=== PATIENT | male | born 1985 | race American Indian/Alaskan Native ===

== ENCOUNTER 2020-10-31 16:44 | Emergency (ER) | payer OTHER ==
[2020-10-31] MEDS ORDERED: LIDOCAINE (1%) 10 MG/1 ML VIAL 20 ML MDV INFILTRATI ONE (17:32)
--- NOTE | 2020-10-31 17:59 | XRay Report ---
Right hand 2 views INDICATION: Middle finger pain FINDINGS: MCP joints and IP joints appear normal and intact. No acute fracture is definitely seen. Signer Name: Arsh Jones MD Signed: 10/31/2020 5:55 PM Workstation Name: [id number]
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
[2020-10-31 18:05] VITALS: BP 137/83
[2020-10-31] MEDS ORDERED: TETANUS,DIPH,PERTUSS(ACELL) VACCINE 0.5 ML SYRINGE IM ONE (19:39)
== END 2020-10-31 20:18 | disposition home or self-care (01) ==
LOC: ED 16:44
DX: S61.212A Laceration without foreign body of right middle finger without damage to nail, initial encounter (principal); Z98.890 Other specified postprocedural states; W26.0XXA Contact with knife, initial encounter; Y93.89 Activity, other specified; Y92.89 Other specified places as the place of occurrence of the external cause; Y99.8 Other external cause status
CPT/HCPCS: 90471; 90715